=== PATIENT | male | born 1965 | race Caucasian/White ===

== ENCOUNTER 2018-04-18 06:53 | Day surgery (SDC) | payer BC, OTHER ==
[2018-04-18] MEDS: NS 1,000 ML IV (07:21)
[2018-04-18] MEDS ORDERED: PROPOFOL 200 MG/20 ML VIAL As Ordered ×2 (07:55)
== END 2018-04-18 08:56 | disposition home or self-care (01) ==
LOC: M OPP 06:53
DX: Z12.11 Encounter for screening for malignant neoplasm of colon (principal); K64.0 First degree hemorrhoids; K62.1 Rectal polyp; D12.4 Benign neoplasm of descending colon; K63.3 Ulcer of intestine; K21.9 Gastro-esophageal reflux disease without esophagitis; Z79.899 Other long term (current) drug therapy; Z90.49 Acquired absence of other specified parts of digestive tract; Z91.89 Other specified personal risk factors, not elsewhere classified
CPT/HCPCS: 45385

== ENCOUNTER → 2020-02-24 | Outpatient (CLI) | payer BC, OTHER ==
[~2020-02-24] MED LIST: ADVI200T PO; EXCETAB81 PO; PRIL20TA2 PO
[2020-02-24 13:24] LABS: FREE T4 0.91 NG/DL (0.76-1.46); THYROID STIMULATING HORMONE 0.431 uIU/ML (0.358-3.740)
[2020-02-24 13:25] LABS: THYROGLOBULIN ANTIBODY 60.1 U/ML (<60.0)
[2020-02-24 13:26] LABS: TOTAL T3 111.7 NG/DL (60.0-181.0)
== END ==
LOC: M WUC 10:22
PROVIDERS: ATTEND Nurse Practitioner Family
DX: R94.6 Abnormal results of thyroid function studies (principal)

== ENCOUNTER → 2021-11-10 | Outpatient (CLI) | payer BC ==
[2021-11-10 11:21] LABS: FREE T4 1.03 NG/DL (0.76-1.46); THYROID STIMULATING HORMONE 0.467 uIU/ML (0.358-3.740); TOTAL T3 75.9 NG/DL (60.0-181.0)
== END ==
LOC: M LAB 09:57
PROVIDERS: ATTEND Nurse Practitioner Family
DX: R94.6 Abnormal results of thyroid function studies (principal)